=== PATIENT | female | born 1985 | race Caucasian/White ===

== ENCOUNTER 2016-11-29 08:49 | Day surgery (SDC) | payer OTHER ==
--- NOTE | 2016-11-29 09:26 | PCM.PREANE ---
Preanesthetic Assessment - Anesthesia/Transfusion/Family Hx Anesthesia History: Prior Anesthesia Without Reaction Family History of Anesthesia Reaction: No Transfusion History: Prior Transfusion Reaction Intubation History: Unknown - Review of Systems General: No Symptoms Pulmonary: No Symptoms Cardiovascular: No Symptoms Gastrointestinal: Other (long standing h/o heartburns) Neurological: No Symptoms Other: Reports: None - Physical Assessment O2 Sat by Pulse Oximetry: 98 Respiratory Rate: 16 Vital Signs: Last Vital Signs Temp 36.2 C 11/29/16 09:17 Pulse 71 11/29/16 09:17 Resp 16 11/29/16 09:17 BP 120/80 11/29/16 09:17 Pulse Ox 98 11/29/16 09:17 Height: 1.65 m Weight: 93.894 kg ASA Class: 2 Mental Status: Alert & Oriented x3 Airway Class: Mallampati = 2 Dentition: Reports: Normal Dentition, Reiffton(s) (upper front x1) Thyro-Mental Finger Breadths: 2 Mouth Opening Finger Breadths: 3 ROM/Head Extension: Full Lungs: Clear to Auscultation, Normal Respiratory Effort Cardiovascular: Regular Rate, Regular Rhythm - Allergies Allergies/Adverse Reactions: Allergies Allergy/AdvReac Type Severity Reaction Status Date / Time No Known Allergies Allergy Verified 10/31/15 18:16 - Blood Blood Available: No - Anesthesia Plan Pre-Op Medication Ordered: None - Acknowledgements Anesthesia Type Planned: MAC Pt an Appropriate Candidate for the Planned Anesthesia: Yes Alternatives and Risks of Anesthesia Discussed w Pt/Guardian: Yes Pt/Guardian Understands and Agrees with Anesthesia Plan: Yes PreAnesthesia Questionnaire HEENT History: Reports: Other (See Below) Other HEENT History: wears glasses Gastrointestinal History: Reports: GERD Genitourinary History: Reports: None [employer] History: Reports: Psychiatric History: Reports: Anxiety, Depression, Panic Attack Endocrine/Metabolic History: Reports: Obesity/BMI 30+ - Past Surgical History Head Surgeries/Procedures: Reports: None HEENT Surgical History: Reports: Oral Surgery Female Surgical History: Reports: Section - SUBSTANCE USE Smoking Status *Q: Light Tobacco Smoker (1-4 cigarettes per day- trying to quit) Recreational Drug Use History: Yes Recreational Drug Type: Reports: Marijuana/Hashish - HOME MEDS Home Medications: Home Meds Cholecalciferol (Vitamin D3) [Vitamin D3] 1,000 units PO DAILY 11/24/16 [History ] Omeprazole 40 mg PO DAILY 11/24/16 [History] buPROPion [Wellbutrin XL] 150 mg PO DAILY 11/24/16 [History]
[2016-11-29] MEDS ORDERED: Propofol 200 MG/20 ML SDV ONE (09:34)
[2016-11-29] MEDS ORDERED: fentaNYL 100 MCG/2 ML SDV ONE (09:34)
[2016-11-29] MEDS ORDERED: Midazolam 1 MG/ML 2 ML SDV ONE (09:34)
[2016-11-29] MEDS ORDERED: Ondansetron 4 MG/2 ML SDV ONE (09:34)
--- NOTE | 2016-11-29 10:12 | PCM.OPNOTE ---
- General Post-Op/Procedure Note Date of Surgery/Procedure: 11/29/16 Operative Procedure(s): Esophagogastroduodenoscopy with biopsy Pre Op Diagnosis: Progressive heartburn Post-Op Diagnosis: Gastritis and esophagitis Anesthesia Technique: MAC (ASA II) Primary Surgeon: Matt Duque Condition: Good Free Text/Narrative:: Dictation [id number] CPT CODE [id number]
[2016-11-29] MEDS ORDERED: Lactated Ringers 1,000 ML IV SCH (10:15)
[2016-11-29 10:51] VITALS: BP 114/69
--- NOTE | 2016-11-29 11:15 | OR ---
SURGEON: Matt Duque M.D. DATE OF PROCEDURE: 11/29/2016 OPERATION PERFORMED: Esophagogastroduodenoscopy with biopsy. ANESTHESIA: MAC. ASA CLASSIFICATION: II. PREOPERATIVE DIAGNOSIS: Progressive heartburn. POSTOPERATIVE DIAGNOSES: 1. Moderate gastritis. 2. Esophagitis. DESCRIPTION OF PROCEDURE: The patient was taken to the endoscopy room, positioned on the endoscopy table in the supine position. Time-out was called for appropriate identification of the patient and procedure. Monitored anesthesia care was provided. The bite block was placed between the patient's teeth. The gastroscope was inserted through the bite block and advanced without difficulty into the oropharynx and subsequently through the esophagus and stomach into the duodenum where examination was now carried out in a retrograde fashion. The duodenum shows no acute inflammatory changes. The stomach does show a [id number] gastritis. Antral biopsies were obtained as well as biopsies of the body of the stomach. No acute ulcerations were noted. No gastric polyps were identified. The gastroscope was slowly withdrawn to the GE junction, which also shows some mild inflammatory changes. Separate biopsies of the esophagus were obtained. The mid and proximal esophagus showed no acute erosions or ulcerations. No other lesions were identified. The vocal cords were visualized as the scope was withdrawn and noted to move symmetrically. The gastroscope was then removed with the patient having tolerated the procedure well. She was taken to recovery room in stable condition. MANSI MCCOLLUM /[id number]
== END 2016-11-29 10:52 | disposition home or self-care (01) ==
LOC: MW.SDS 08:49
PROVIDERS: ATTEND Surgery
DX: K29.50 Unspecified chronic gastritis without bleeding (principal); K21.9 Gastro-esophageal reflux disease without esophagitis; Z79.899 Other long term (current) drug therapy; Z98.890 Other specified postprocedural states; Z87.891 Personal history of nicotine dependence
CPT/HCPCS: 43239; 81025; 88305; 88312; J2250; J2405; J3010; 00740; J2704

== ENCOUNTER 2021-09-13 15:34 | Emergency (ER) | payer SELFPAY ==
[2021-09-13] MEDS ORDERED: Morphine 4 MG/ML VIAL IVPUSH ONE (18:10)
[2021-09-13] MEDS ORDERED: Pantoprazole 80 MG in Sodium Chloride 0.9% 10 ML IVPUSH ONE (18:10)
[2021-09-13] MEDS ORDERED: Ondansetron 4 MG/2 ML SDV IVPUSH ONE (18:10)
[2021-09-13] MEDS ORDERED: Sodium Chloride 0.9% 1,000 ML IV ONE (18:10)
[2021-09-13 18:27] LABS: CARBON DIOXIDE,CO2 28.1 mmol/L (21.0-32.0); POTASSIUM,K 3.6 mmol/L (3.5-5.1)
[2021-09-13] MEDS ORDERED: Iopamidol 755 MG/ML 500 ML Multipack Bottle IVPUSH STA (19:06)
[2021-09-13] MEDS ORDERED: traMADol 50 MG Tab PO ONE (21:04)
[2021-09-13 21:15] VITALS: BP 116/66; PULSE 60
== END 2021-09-13 21:15 | disposition home or self-care (01) ==
LOC: MW.ED 15:34
DX: U07.1 COVID-19 (principal); K29.71 Gastritis, unspecified, with bleeding; F17.210 Nicotine dependence, cigarettes, uncomplicated; E66.9 Obesity, unspecified; Z68.31 Body mass index [BMI] 31.0-31.9, adult; Z88.8 Allergy status to other drugs, medicaments and biological substances; Z79.899 Other long term (current) drug therapy
CPT/HCPCS: 36415; 74177; 80053; 83605; 83690; 85025; 85610; 87635; 93005; 96361; 96374; 96375; 99284; A9270; C9113; J2270; J2405; J3490; J7030; Q9967; 93010; U0002

== ENCOUNTER 2021-10-02 08:31 | Day surgery (SDC) | payer BC ==
[~2021-10-02 08:31] MED LIST: Lactated Ringers 1,000 ML IV SCH
[2021-10-02] MEDS ORDERED: Lidocaine 2% 5 ML SDV ONE (08:51)
[2021-10-02] MEDS ORDERED: Propofol 200 MG/20 ML SDV ONE (08:51)
[2021-10-02] MEDS ORDERED: fentaNYL 100 MCG/2 ML SDV ONE (08:51)
[2021-10-02] MEDS ORDERED: Famotidine 20 MG/2 ML SDV ONE (09:47)
[2021-10-02] MEDS ORDERED: Lactated Ringers 1,000 ML IV SCH (10:30)
[2021-10-02 12:54] VITALS: BP 124/72; PULSE 76
== END 2021-10-02 10:49 | disposition home or self-care (01) ==
LOC: MW.SDS 08:31
PROVIDERS: ATTEND Surgery
DX: K21.00 Gastro-esophageal reflux disease with esophagitis, without bleeding (principal); K29.51 Unspecified chronic gastritis with bleeding; I51.89 Other ill-defined heart diseases; F41.9 Anxiety disorder, unspecified; F32.A Depression, unspecified; F17.210 Nicotine dependence, cigarettes, uncomplicated; Z91.02 Food additives allergy status; Z79.899 Other long term (current) drug therapy; Z79.810 Long term (current) use of selective estrogen receptor modulators (SERMs); Z98.890 Other specified postprocedural states
CPT/HCPCS: 43239; 81025; J2704; J3010; J3490; J7120; 00731

== ENCOUNTER 2023-01-07 10:50 | Inpatient (IN) | payer BC ==
[2023-01-07] MEDS ORDERED: Citric Acid/Sodium Citrate Solution 30 ML Cup PO ONE (14:05)
[2023-01-07] MEDS ORDERED: Sodium Chloride 0.9% 2.5 ML Syringe FLUSH PRN (14:05)
[2023-01-07] MEDS ORDERED: ceFAZolin 2 GM in Sodium Chloride 0.9% 50 ML IV ONE (14:05)
[2023-01-07] MEDS ORDERED: Sodium Chloride 0.9% 20 ML SDV IV PRN (14:05)
[2023-01-07] MEDS ORDERED: Oxytocin/0.9 % Sodium Chloride 30 UNIT/500 ML BAG IV SCH (14:15)
[2023-01-07] MEDS ORDERED: Lactated Ringers 1,000 ML IV SCH ×2 (14:15→15:00)
[2023-01-07] MEDS ORDERED: droPERidol 5 MG/2 ML SDV IVPUSH PRN (14:44)
[2023-01-07] MEDS ORDERED: Naloxone 0.4 MG/ML SDV IVPUSH PRN (14:44)
[2023-01-07] MEDS ORDERED: Metoclopramide 10 MG/2 ML SDV IVPUSH PRN (14:44)
[2023-01-07] MEDS ORDERED: Morphine 2 MG/ML SYRINGE IVPUSH PRN (14:44)
[2023-01-07] MEDS ORDERED: ePHEDrine 50 MG/ML SDV IVPUSH PRN (14:44)
[2023-01-07] MEDS ORDERED: Albuterol 0.083% 2.5 MG/3 ML Neb Soln NEB PRN (14:44)
[2023-01-07] MEDS ORDERED: Ondansetron 4 MG/2 ML SDV IVPUSH PRN ×2 (14:44)
[2023-01-07] MEDS ORDERED: fentaNYL 50 MCG/ML SDV IVPUSH PRN (14:44)
[2023-01-07] MEDS ORDERED: HYDROmorphone 1 MG/ML Syringe IVPUSH PRN (14:44)
[2023-01-07] MEDS ORDERED: diphenhydrAMINE 50 MG/ML SDV IVPUSH PRN (14:44)
[2023-01-07] MEDS ORDERED: fentaNYL 100 MCG/2 ML SDV IVPUSH PRN (14:44)
[2023-01-07] MEDS ORDERED: Methylergonovine 0.2 MG/1 ML Amp IM PRN (14:49)
[2023-01-07] MEDS ORDERED: Acetaminophen/oxyCODONE 325-5 MG Tab PO PRN (14:49)
[2023-01-07] MEDS ORDERED: Aluminum Hydroxide/Magnesium Hydroxide/Simethicone XS Susp 30 ML Cup PO PRN (14:49)
[2023-01-07] MEDS ORDERED: Misoprostol 200 MCG Tab RECTAL PRN (14:49)
[2023-01-07] MEDS ORDERED: Tranexamic Acid IN NACL,ISO-OS 1,000 MG in Premix Bag 1 BAG IV PRN ×2 (14:49)
[2023-01-07] MEDS ORDERED: Lanolin 100% Cream 7 GM Tube TOP PRN (14:49)
[2023-01-07] MEDS ORDERED: Bisacodyl 10 MG Supp RECTAL PRN (14:49)
[2023-01-07] MEDS ORDERED: Temazepam 15 MG Cap PO PRN (14:49)
[2023-01-07] MEDS ORDERED: Famotidine 20 MG Tab PO PRN (14:49)
[2023-01-07] MEDS ORDERED: ceFAZolin 1 GM Vial ONE (14:55)
[2023-01-07] MEDS ORDERED: Ropivacaine 0.5% 5 MG/ML 30 ML SDV ONE (14:56)
[2023-01-07] MEDS ORDERED: Oxytocin 10 Units/1 ML SDV ONE ×2 (14:57→16:23)
[2023-01-07] MEDS ORDERED: dexmedeTOMIDine HCl 200 MCG/2 ML SDV ONE (14:57)
[2023-01-07] MEDS ORDERED: Dexamethasone 4 MG/ML 5 ML MDV ONE (14:57)
[2023-01-07] MEDS ORDERED: Tranexamic Acid 1,000 MG/10 ML Vial ONE (14:57)
[2023-01-07 14:58] LABS: BASOPHILS ABSOLUTE AUTO 0.02 K/uL (0.00-0.20); BASOPHILS PERCENT AUTO 0.2 % (0.0-1.0); EOSINOPHILS ABSOLUTE AUTO 0.06 K/uL (0.00-0.45); EOSINOPHILS PERCENT AUTO 0.5 % (0.0-6.0); HEMATOCRIT 38.9 % (37.0-47.0); HEMOGLOBIN 13.7 g/dL (12.0-16.0); IMMATURE GRAN ABSOLUTE AUTO 0.08 K/uL (0.00-0.05); IMMATURE GRAN PERCENT AUTO 0.7 % (0.0-0.4); LYMPHOCYTES ABSOLUTE AUTO 2.82 K/uL (1.00-4.80); LYMPHOCYTES PERCENT AUTO 23.3 % (24.0-44.0); MEAN CORPUSCULAR HEMOGLOBIN 31.7 pg (28.0-32.0); MEAN CORPUSCULAR HGB CONC 35.2 g/dL (32.0-36.0); MEAN PLATELET VOLUME 10.6 fL (9.4-12.3); MONOCYTES ABSOLUTE AUTO 0.78 K/uL (0.00-0.80); MONOCYTES PERCENT AUTO 6.4 % (0.0-8.0); NEUTROPHILS ABSOLUTE AUTO 8.35 K/uL (1.80-7.70); NEUTROPHILS PERCENT AUTO 68.9 % (41.0-71.0); PLATELET COUNT,PLT 263 K/uL (150-400); RED BLOOD CELL COUNT 4.32 M/uL (4.10-5.30); WHITE BLOOD CELL COUNT,WBC 12.11 K/uL (3.9-11.3)
[2023-01-07] MEDS ORDERED: fentaNYL 100 MCG/2 ML SDV ONE (15:03)
[2023-01-07] MEDS ORDERED: Morphine PF 10 MG/10 ML SDV ONE (15:03)
[2023-01-07] MEDS ORDERED: Water For Injection, Sterile 20 ML ONE (15:06)
[2023-01-07] MEDS ORDERED: Lidocaine 2% 5 ML SDV ONE (15:37)
[2023-01-07] MEDS: Ketorolac 30 MG/ML SDV IVPUSH SCH ×2 (18:13→21:45)
[2023-01-07] MEDS: Ferrous Sulfate 325 MG Tab PO SCH (18:18)
[2023-01-07] MEDS: Acetaminophen 1,000 MG in Premix Bag 1 BAG IV SCH (18:44)
[2023-01-07] MEDS: Simethicone 80 MG Tab.Chew PO SCH (18:45)
[2023-01-08] MEDS: Simethicone 80 MG Tab.Chew PO SCH ×3 (00:35→11:47)
[2023-01-08] MEDS: Ketorolac 30 MG/ML SDV IVPUSH SCH ×3 (03:30→15:37)
[2023-01-08] MEDS: Acetaminophen 1,000 MG in Premix Bag 1 BAG IV SCH ×4 (05:30→09:43)
[2023-01-08] MEDS: Docusate Sodium 100 MG Cap PO SCH ×2 (09:17→21:49)
[2023-01-08] MEDS: Ferrous Sulfate 325 MG Tab PO SCH ×2 (09:17→11:47)
[2023-01-08] MEDS: Sodium Chloride 0.9% 10 ML Syringe FLUSH PRN ×2 (09:22→15:42)
[2023-01-08 12:54] LABS: HEMATOCRIT 33.4 % (37.0-47.0); MEAN CORPUSCULAR HEMOGLOBIN 32.3 pg (28.0-32.0); MEAN CORPUSCULAR HGB CONC 35.9 g/dL (32.0-36.0); MEAN PLATELET VOLUME 9.8 fL (9.4-12.3); PLATELET COUNT,PLT 275 K/uL (150-400); RED BLOOD CELL COUNT 3.71 M/uL (4.10-5.30); WHITE BLOOD CELL COUNT,WBC 20.02 K/uL (3.9-11.3)
[2023-01-08] MEDS ORDERED: Acetaminophen 1,000 MG in Premix Bag 1 BAG IV SCH (15:45)
[2023-01-08] MEDS: Ibuprofen 800 MG Tab PO PRN (21:48)
[2023-01-08] MEDS: Acetaminophen/oxyCODONE 325-5 MG Tab PO PRN (23:09)
[2023-01-09] MEDS: Acetaminophen/oxyCODONE 325-5 MG Tab PO PRN ×4 (03:47→20:19)
[2023-01-09] MEDS: Ibuprofen 800 MG Tab PO PRN ×2 (06:25→15:00)
[2023-01-09] MEDS: Simethicone 80 MG Tab.Chew PO SCH ×3 (06:26→17:29)
[2023-01-09] MEDS: Omeprazole 20 MG Cap.CR**PT OWN MED PO SCH (07:08)
[2023-01-09] MEDS ORDERED: Omeprazole 20 MG Cap.CR PO SCH (07:30)
[2023-01-09] MEDS: Docusate Sodium 100 MG Cap PO SCH ×2 (08:51→20:19)
[2023-01-09] MEDS: Ferrous Sulfate 325 MG Tab PO SCH ×3 (08:51→17:29)
[2023-01-10] MEDS: Simethicone 80 MG Tab.Chew PO SCH ×4 (00:18→15:18)
[2023-01-10] MEDS: Acetaminophen/oxyCODONE 325-5 MG Tab PO PRN ×3 (03:17→15:37)
[2023-01-10] MEDS: Ibuprofen 800 MG Tab PO PRN (08:31)
[2023-01-10] MEDS: Ferrous Sulfate 325 MG Tab PO SCH ×3 (08:32→15:18)
[2023-01-10] MEDS: Docusate Sodium 100 MG Cap PO SCH (08:32)
[2023-01-10] MEDS: Omeprazole 20 MG Cap.CR**PT OWN MED PO SCH (08:33)
[2023-01-10 15:52] VITALS: BP 111/69; PULSE 67
== END 2023-01-10 17:14 | disposition home or self-care (01) | DRG 540 ==
LOC: MW.OB 10:50 → MW.OBCHECK 10:50 → OBSVTOIN 16:27 → MW.OB 16:27
PROVIDERS: ADMIT Obstetrics & Gynecology; ATTEND Obstetrics & Gynecology
PROC: 10D00Z1 Extraction of Products of Conception, Low, Open Approach (ICD-10-PCS; principal; 2023-01-07 16:10)
DX: O36.5930 Maternal care for other known or suspected poor fetal growth, third trimester, not applicable or unspecified (principal); N73.6 Female pelvic peritoneal adhesions (postinfective); O98.32 Other infections with a predominantly sexual mode of transmission complicating childbirth; O90.81 Anemia of the puerperium; D62 Acute posthemorrhagic anemia; A60.00 Herpesviral infection of urogenital system, unspecified; O99.214 Obesity complicating childbirth; O99.892 Other specified diseases and conditions complicating childbirth; E66.09 Other obesity due to excess calories; F41.9 Anxiety disorder, unspecified; O99.344 Other mental disorders complicating childbirth; Z88.8 Allergy status to other drugs, medicaments and biological substances; Z37.0 Single live birth; Z3A.37 37 weeks gestation of pregnancy
CPT/HCPCS: 36415; 59025; 76819; 76819-26; 85025; 85027; 86592; 86850; 86900; 86901; A9270-GY; J0131; J0690; J1100; J1885; J2274; J2590; J2795; J3010; J3490; J7120